=== PATIENT | female | born 1985 | race Caucasian/White ===

== ENCOUNTER 2020-02-04 10:30 | Outpatient (REF) | payer OTHER, SELFPAY | END 2020-02-04 10:31 | disposition home or self-care (01) | LOC: HO.LAB 10:30 | PROVIDERS: Visit Provider Internal Medicine | DX: Z20.828 Contact with and (suspected) exposure to other viral communicable diseases (principal) | CPT/HCPCS: C9803; U0003 ==

== ENCOUNTER 2020-03-27 12:03 | Outpatient (REF) | payer OTHER, SELFPAY | END 2020-03-27 12:04 | disposition home or self-care (01) | LOC: HO.LAB 12:03 | PROVIDERS: Visit Provider Internal Medicine | DX: Z20.822 Contact with and (suspected) exposure to COVID-19 (principal) | CPT/HCPCS: 36415; C9803; U0003; U0005 ==

== ENCOUNTER 2021-12-17 08:49 | Emergency (ER) | payer OTHER, SELFPAY ==
[2021-12-17 09:47] VITALS: BP 115/63; PULSE 109; RESP 16; TEMP 36.6; O2SAT 99; BMI 29.2
--- NOTE | 2021-12-17 11:07 | ED_ITS ---
HPI - Skin/Abscess/Foreign Bdy General Chief complaint: Skin/Abscess/Foreign Body Stated complaint: vaginal pain Time Seen by Provider: 12/17/21 10:09 Source: patient Mode of arrival: ambulatory Limitations: no limitations History of Present Illness HPI narrative: Patient presents emergency department for evaluation of right labial pain and swelling. Reports onset 4 days. States she has had a history of similar in the past greater than 7 years ago but not nearly this severe. Reports that area to become increasing in size and worsening pain. She has had some associated dysuria. She denies fevers, chills, nausea, vomiting, abdominal pain, suprapubic pain, back pain, abnormal vaginal discharge, concerns for sexually transmitted infections. Related Data Previous Rx's Medication Instructions Recorded doxycycline hyclate 100 mg tablet 100 mg PO BID 7 days #14 tabs 12/17/21 oxycodone 5 mg tablet 5 mg PO Q6H PRN pain #10 tabs 12/17/21 Allergies Allergy/AdvReac Type Severity Reaction Status Date / Time No Known Allergies Allergy Verified 12/17/21 09:50 Review of Systems Review of Systems: Constitutional: No weight loss, fever, chills, weakness or fatigue. Skin: No rash or itching. Cardiovascular: No chest pain, chest pressure or chest discomfort. No palpita tions or pedal edema. Respiratory: No shortness of breath, cough or sputum production. Gastrointestinal: No anorexia, nausea, vomiting or diarrhea. No abdominal pain Genitourinary: No burning micturition. No urinary frequency or incontinence. Labial pain and swelling Musculoskeletal: No muscle pain, back pain, joint pain or stiffness. Psychiatric: No depression or anxiety. Yes all other systems are reviewed and are negative [facility] Past Medical History Attestation statement: The following information was validated with the patient. Source: old records reviewed Social History Social History Advance Directives: No Advance Directives Information Provided: Yes Physical Exam Vital Signs: Vital Signs: Last Vital Signs Temp 97.9 F 12/17/21 09:47 Pulse 109 H 12/17/21 09:47 Resp 16 12/17/21 09:47 BP 115/63 12/17/21 09:47 Pulse Ox 99 12/17/21 09:47 O2 Del Method 12/17/21 09:47 BMI result Body Mass Index 29.2 Vital signs have been reviewed as normal and appeared to be correct. Blood pressure normal.? Tachycardia Respiration rate normal. Temperature normal.? Oxygen saturation normal. Appearance: Alert.?Oriented to person, place and time. No acute distress.?Normal affect. Eyes: Pupils equal, round and reactive to light.? ENT: Pharynx normal.?? Neck: Normal inspection.? Neck supple.?? CVS: Heart sounds normal. Normal heart rate and rhythm.? Pulses normal.?? Respiratory: No respiratory distress.? Lung sounds clear to auscultation bilaterally?? Abdomen: Soft and non-tender. Normoactive bowel sounds. Genitourinary: Supervised by ED FARAZ Lozoya. Normal external appearance of urethra.? No lesions/lacerations or discharge or tenderness noted. positive right Bartholin cyst noted.? Skin: Skin warm and dry.? Normal skin color.? Extremities: No lower extremity edema.? Neuro: Moves all extremities spontaneously. Sensation intact bilaterally. No focal neuro deficits. Ambulates with normal steady gait. Course Course Course Narrative: Patient is a 36-year-old female with no significant past medical history presents emergency department for evaluation labial abscess. Upon physical examination is consistent with a Bartholin's cyst, significant right labial swelling, pain, tenderness upon palpation, and labial erythema externally. She is noted to be tachycardic upon arrival to the emergency department, this may be responses secondary to pain, however will obtain CBC, CMP, lactic acid, blood cultures, chlamydia and gonorrhea testing as well as urinalysis. Patient to receive LMX to the area, morphine IV for pain, Zofran IV prophylactically for nausea. Will prepare for incision and drainage of the Bartholin cyst. Reevaluation(s) Reevaluation #1: CBC is Notable for leukocytosis with 8.0. CMP is unremarkable. Lactic acid is normal. Blood cultures pending. Patient is status post incision and drainage of the Bartholin's cyst, performed under aseptic technique, copious amount of purulent drainage removed, Benavides catheter did not remain in place after drainage, tolerated the procedure well. Testing for gonorrhea and chlamydia sent and are pending received prophylactic treatment ceftriaxone while in the emergency department and discharged home with a prescription for doxycycline. Urinalysis reveals no evidence of infection, urine test is negative. Advised outpatient follow-up with Gynecology. Reviewed worrisome signs and symptoms to return back to emergency department for. All questions patient was discharged h ome in stable condition. MDM - Skin/Abscess/Foreign Bdy Medical Records Attestation: I reviewed the patient's medical records. Lab Data Attestation: I reviewed the patient's lab results. Result diagrams: 12/17/21 11:40 12/17/21 11:50 Labs: Lab Results 12/17/21 12/17/21 12/17/21 Range/Units 11:40 11:40 11:50 WBC 18.0 H (4.8-10.8) X10*3/uL RBC 4.26 (4.20-5.50) X10*6/uL Hgb 11.9 L (12.0-16.0) g/dl Hct 35.8 L (37.0-47.0) % MCV 84.0 (80.0-98.0) fL MCH 27.9 (27.0-33.0) pg MCHC 33.2 (31.0-35.0) g/dl RDW 13.0 (11.0-16.0) % Plt Count 417 H (160-400) X10*3/uL MPV 9.5 (9.4-12.3) fL Immature Gran % (Auto) 0.4 (0.0-0.4) % Neut % (Auto) 85.0 H (45-73) % Lymph % (Auto) 9.3 L (20-40) % [place] % (Auto) 4.8 (2-11) % Eos % (Auto) 0.2 (0-4) % Baso % (Auto) 0.3 (0-2) % Lymph # (Auto) 1.7 (1.2-4.9) X10*3/uL [place] # (Auto) 0.9 (0.1-1.2) X10*3/uL Eos # (Auto) 0.0 (0.0-0.4) X10*3/uL Baso # (Auto) 0.1 (0.0-0.2) X10*3/uL Abs Immat Gran (auto) 0.07 H (0.00-0.03) X10*3/uL Absolute Neuts (auto) 15.3 H (2.0-8.3) x10*3/uL Absolute Nucleated RBC 0.000 (0.0-0.012) X10*3/uL Nucleated RBC % (auto) 0.0 (0.0-0.2) /100WBC Sodium 139 (135-145) mmol/L Potassium 3.7 (3.3-5.1) mmol/L Chloride 103 (96-108) mmol/L Carbon Dioxide 24 (22-29) mmol/L Anion Gap 16 (12-20) BUN 7 L (9-16) mg/dL Creatinine 0.65 (0.5-1.4) mg/dL Estim Creat Clear Calc 98.6 Estimated GFR > 60 Random Glucose 87 (60-115) mg/dL Lactic Acid 0.9 (0.5-2.0) mmol/L Calcium 8.9 (8.4-10.2) mg/dL Total Bilirubin 0.4 (0.0-1.0) mg/dL AST 13 (5-31) U/L ALT 9 (0-31) U/L Alkaline Phosphatase 89 (39-117) U/L Total Protein 7.1 (6.5-8.0) g/dL Albumin 4.0 (3.5-5.0) g/dL Urine Color Urine Appearance Urine pH (5.0-9.0) Ur Specific [place] (1.005-1.025) Urine Protein (Neg-Trace) mg/dL Urine Glucose (UA) (Negative) mg/dL Urine Ketones (Negative) mg/dL Urine Blood (Negative) Urine Nitrite (Negative) Ur Leukocyte Esterase (Negative) Urine RBC (0-2) /HPF Urine WBC (0-5) /HPF Ur Squamous Epith Cells (0-2) /HPF Urine Bacteria (None Seen) Hyaline Casts (0-2) /LPF Urine Test (NEGATIVE) 12/17/21 12/17/21 Range/Units 14:08 14:08 WBC (4.8-10.8) X10*3/uL RBC (4.20-5.50) X10*6/uL Hgb (12.0-16.0) g/dl Hct (37.0-47.0) % MCV (80.0-98.0) fL MCH (27.0-33.0) pg MCHC (31.0-35.0) g/dl RDW (11.0-16.0) % Plt Count (160-400) X10*3/uL MPV (9.4-12.3) fL Immature Gran % (Auto) (0.0-0.4) % Neut % (Auto) (45-73) % Lymph % (Auto) (20-40) % [place] % (Auto) (2-11) % Eos % (Auto) (0-4) % Baso % (Auto) (0-2) % Lymph # (Auto) (1.2-4.9) X10*3/uL [place] # (Auto) (0.1-1.2) X10*3/uL Eos # (Auto) (0.0-0.4) X10*3/uL Baso # (Auto) (0.0-0.2) X10*3/uL Abs Immat Gran (auto) (0.00-0.03) X10*3/uL Absolute Neuts (auto) (2.0-8.3) x10*3/uL Absolute Nucleated RBC (0.0-0.012) X10*3/uL Nucleated RBC % (auto) (0.0-0.2) /100WBC Sodium (135-145) mmol/L Potassium (3.3-5.1) mmol/L Chloride (96-108) mmol/L Carbon Dioxide (22-29) mmol/L Anion Gap (12-20) BUN (9-16) mg/dL Creatinine (0.5-1.4) mg/dL Estim Creat Clear Calc Estimated GFR Random Glucose (60-115) mg/dL Lactic Acid (0.5-2.0) mmol/L Calcium (8.4-10.2) mg/dL Total Bilirubin (0.0-1.0) mg/dL AST (5-31) U/L ALT (0-31) U/L Alkaline Phosphatase (39-117) U/L Total Protein (6.5-8.0) g/dL Albumin (3.5-5.0) g/dL Urine Color Dark Yellow Urine Appearance Clear Urine pH 6.5 (5.0-9.0) Ur Specific [place] 1.020 (1.005-1.025) Urine Protein Trace (Neg-Trace) mg/dL Urine Glucose (UA) Negative (Negative) mg/dL Urine Ketones 15 (Negative) mg/dL Urine Blood Small (1+) H (Negative) Urine Nitrite Negative (Negative) Ur Leukocyte Esterase Small (1+) H (Negative) Urine RBC 3-5 H (0-2) /HPF Urine WBC 0-5 (0-5) /HPF Ur Squamous Epith Cells 0-2 (0-2) /HPF Urine Bacteria 1+ (None Seen) Hyaline Casts 0-2 (0-2) /LPF Urine Test NEGATIVE (NEGATIVE) Procedures Abscess I/D Site: bartholin's gland Side (if applicable): right Local Anesthetic: lidocaine 2% Amount of anesthesia used (mL): 6 Technique: incised with blade Irrigation: Yes Packing used?: none Discharge Plan Discharge Clinical Impression: Bartholin cyst Patient Disposition: Home, Self-Care Instructions: Bartholin Cyst (ED) Additional Instructions: As discussed, the area may continue to drain blood/pus over the next couple of days. Please contact [employer]IE[employer] TECHNICIAN Dr. Santana, to arrange for a follow-up visit. You can take ibuprofen 200 mg, 3 tablets (600mg) every 6-8 hours as needed for pain, in addition to Tylenol 500 mg, 2 tablets (1,000mg) every 4-6 hours as needed for pain, but not to exceed 3 doses daily (3,000mg).? You have also been given a prescription for oxycodone to use for severe pain not relieved with ibuprofen/Tylenol. This is a narcotic medication, it may be addicting, it can make you drowsy. You should not drive, go to work, operate machinery, or drink alcohol while taking this medication. You have been given an antibiotic, doxycycline, please take this twice daily for 7 days. Return to the emergency department any new or worsening symptoms or concerns including but not limited to increasing redness, swelling, pain, fevers, chills. [place] se mencion?, el ?eddi puede continuar drenando barrie/pus alejandra los pr?ximos d?as. Comun?quese con el gine?logo Dr. Santana para programar roberto carlos visita de seguimiento. Puede cathryn ibuprofeno de 200 mg, 3 tabletas (600 mg) cada 6 a 8 horas seg?n sea necesario para el dolor, adem?s de Tylenol 500 mg, 2 tabletas (1000 mg) cada 4 a 6 horas seg?n sea necesario para el dolor, layo sin exceder las 3 dosis diarias (3.000 mg). Tambi?n se le smart recetado oxicodona para el dolor intenso que no se dontrell con ibuprofeno/Tylenol. Fe es un medicamento narc?jose ramon, puede ser adictivo, puede causarle somnolencia. No debe conducir, ir a trabajar, operar maquinaria o beber alcohol mientras rhonda fe medicamento. Le monet dado un antibi?jose ramon, doxiciclina, t?arango dos veces al d?a alejandra 7 d?as. Devuelva al departamento de emergencias cualquier s?ntoma nuevo o que empeore o inquietudes que incluyen, entre otros, aumento del enrojecimiento, hinchaz?n, dolor, fiebre, escalofr?os. Prescriptions: New oxycodone 5 mg tablet 5 mg PO Q6H PRN (Reason: pain) Qty: 10 0RF Rx Instructions: Partial Fill upon patient request. doxycycline hyclate 100 mg tablet 100 mg PO BID 7 Days Qty: 14 0RF Stand Alone Forms: Work/School Release Interventions: ED Discharge Assessment Last Done: 12/17/21 14:43 Print Language: Thai
[2021-12-17] MEDS: Lidocaine 4 % Cream KIT 1 APPL TOPICAL (11:42)
[2021-12-17] MEDS: Lidocaine HCl 2 % MPF 5 ML VIAL SUBCUT (11:42)
[2021-12-17] MEDS: Morphine Sulfate 4 MG/ML CARTRIDGE IVPUSH ×2 (11:42→12:55)
[2021-12-17] MEDS: ondansetron HCL 4 MG/2 ML VIAL IVPUSH (11:42)
[2021-12-17 11:55] LABS: MANUAL DIFF FLAG NO
[2021-12-17 11:56] LABS: Basophils Absolute Auto 0.1 X10*3/uL (0.0-0.2); Basophils Percent Auto 0.3 % (0-2); Eosinophils Percent Auto 0.2 % (0-4); Hematocrit 35.8 % (37.0-47.0); Hemoglobin 11.9 g/dl (12.0-16.0); Imm Gran Abs Auto 0.07 X10*3/uL (0.00-0.03); Imm Gran Pct Auto 0.4 % (0.0-0.4); Lymphocytes Absolute Auto 1.7 X10*3/uL (1.2-4.9); Lymphocytes Percent Auto 9.3 % (20-40); Mean Corpuscular HGB Conc 33.2 g/dl (31.0-35.0); Mean Corpuscular Hemoglobin 27.9 pg (27.0-33.0); Mean Platelet Volume 9.5 fL (9.4-12.3); Monocytes Absolute Auto 0.9 X10*3/uL (0.1-1.2); Monocytes Percent Auto 4.8 % (2-11); Neutrophils Absolute Auto 15.3 x10*3/uL (2.0-8.3); Platelet Count 417 X10*3/uL (160-400); Red Blood Count 4.26 X10*6/uL (4.20-5.50)
[2021-12-17 12:08] LABS: Lactic Acid 0.9 mmol/L (0.5-2.0)
[2021-12-17 12:14] LABS: Alanine Aminotransferase 9 U/L (0-31); Alkaline Phosphatase 89 U/L (39-117); Anion Gap 16 (12-20); Aspartate Amino Transferase 13 U/L (5-31); Bilirubin Total 0.4 mg/dL (0.0-1.0); Blood Urea Nitrogen 7 mg/dL (9-16); Calcium 8.9 mg/dL (8.4-10.2); Carbon Dioxide 24 mmol/L (22-29); Chloride 103 mmol/L (96-108); Creatinine Clr Calc Pharmacy 98.6; Estimated Glomerular Filt Rate > 60; Glucose Random 87 mg/dL (60-115); Potassium 3.7 mmol/L (3.3-5.1); Sodium 139 mmol/L (135-145); Total Protein 7.1 g/dL (6.5-8.0)
[2021-12-17] MEDS: cefTRIAXone sodium 500 MG, Lidocaine HCl 1 % MPF 1 ML IM (14:08)
[2021-12-17 14:18] LABS: Appearance Urine Clear; Color Urine Dark Yellow; Glucose Urine UA Negative (Negative); Leukocyte Esterase Urine Small (1+) (Negative); Nitrite Urine Negative (Negative); PH 6.5 (5.0-9.0); UMIC TRIGGER UACC YES; Urine Blood Small (1+) (Negative); Urine Ketones 15 mg/dL (Negative); Urine Protein Trace mg/dL (Neg-Trace)
[2021-12-17 14:19] LABS: UPreg QC Valid YES; Urine Pregnancy NEGATIVE (NEGATIVE)
[2021-12-17 14:30] LABS: Bacteria Urine 1+ (None Seen); Hyaline Casts Urine 0-2 /LPF (0-2); Squamous Epithelial Cell Urine 0-2 /HPF (0-2); UACC Culture Trigger YES; WBC Urine 0-5 /HPF (0-5)
[2021-12-17 16:30] LABS: CT PCR NOT DETECTED (Not Detect.); NG PCR NOT DETECTED (Not Detect.)
== END 2021-12-17 14:52 | disposition home or self-care (01) ==
PROVIDERS: Nurse Practitioner Family; Emergency Provider Emergency Medicine
DX: N75.1 Abscess of Bartholin's gland (principal); R10.2 Pelvic and perineal pain
CPT/HCPCS: 36415; 56420; 80053; 81001; 81025; 83605; 85025; 87040; 87086; 87147; 87205; 87491; 87591; 96372; 96374; 96375; 96376; 99282; 99284; J0696; J2270; J2405

== ENCOUNTER 2021-12-18 15:38 | Emergency (ER) | payer OTHER, SELFPAY | END 2021-12-18 18:32 | disposition left against medical advice (07) | LOC: HO.ED 18:31 | PROVIDERS: Emergency Provider Emergency Medicine | DX: Z04.9 Encounter for examination and observation for unspecified reason (principal) ==

== ENCOUNTER 2021-12-19 02:21 | Emergency (ER) | payer OTHER, SELFPAY ==
[2021-12-19 02:47] VITALS: BP 112/46; PULSE 77; RESP 18; TEMP 36.8; O2SAT 100; BMI 29.5
[2021-12-19 03:09] LABS: Appearance Urine Cloudy; Basophils Absolute Auto 0.1 X10*3/uL (0.0-0.2); Basophils Percent Auto 0.6 % (0-2); Color Urine Dark Yellow; Eosinophils Absolute Auto 0.4 X10*3/uL (0.0-0.4); Glucose Urine UA Negative (Negative); Hematocrit 36.5 % (37.0-47.0); Hemoglobin 11.9 g/dl (12.0-16.0); Imm Gran Abs Auto 0.04 X10*3/uL (0.00-0.03); Imm Gran Pct Auto 0.4 % (0.0-0.4); Leukocyte Esterase Urine Trace (Negative); Lymphocytes Percent Auto 32.4 % (20-40); MANUAL DIFF FLAG NO; Mean Corpuscular HGB Conc 32.6 g/dl (31.0-35.0); Mean Corpuscular Hemoglobin 27.4 pg (27.0-33.0); Mean Corpuscular Volume 84.1 fL (80.0-98.0); Mean Platelet Volume 8.9 fL (9.4-12.3); Monocytes Absolute Auto 0.6 X10*3/uL (0.1-1.2); Monocytes Percent Auto 6.9 % (2-11); Neutrophils Absolute Auto 5.2 x10*3/uL (2.0-8.3); Neutrophils Percent Auto 55.7 % (45-73); Nitrite Urine Negative (Negative); Platelet Count 456 X10*3/uL (160-400); Red Blood Count 4.34 X10*6/uL (4.20-5.50); Red Cell Distribution Width 12.6 % (11.0-16.0); Specific Gravity - Urine 1.025 (1.005-1.025); UMIC TRIGGER UACC YES; Urine Blood Small (1+) (Negative); Urine Ketones Trace mg/dL (Negative); Urine Protein Trace mg/dL (Neg-Trace); White Blood Count 9.3 X10*3/uL (4.8-10.8)
[2021-12-19 03:19] LABS: Bacteria Urine 4+ (None Seen); Hyaline Casts Urine 0-2 /LPF (0-2); Squamous Epithelial Cell Urine >20 /HPF (0-2); WBC Urine 0-5 /HPF (0-5)
[2021-12-19 03:26] LABS: Alanine Aminotransferase 11 U/L (0-31); Albumin Level 3.9 g/dL (3.5-5.0); Alkaline Phosphatase 88 U/L (39-117); Anion Gap 14 (12-20); Aspartate Amino Transferase 13 U/L (5-31); Bilirubin Total < 0.2 mg/dL (0.0-1.0); Blood Urea Nitrogen 10 mg/dL (9-16); Calcium 8.9 mg/dL (8.4-10.2); Carbon Dioxide 25 mmol/L (22-29); Chloride 103 mmol/L (96-108); Creatinine Clr Calc Pharmacy 97.5; Estimated Glomerular Filt Rate > 60; Glucose Random 103 mg/dL (60-115); Potassium 3.4 mmol/L (3.3-5.1); Sodium 139 mmol/L (135-145); Total Protein 7.1 g/dL (6.5-8.0)
--- NOTE | 2021-12-19 03:35 | ED.RECABL ---
HPI - Recheck/Abnormal Lab/Rx General Chief Complaint: Recheck/Abnormal Lab/Rx Stated Complaint: ?Abnormal lab Time Seen by Provider: 12/19/21 03:34 Source: patient Mode of arrival: ambulatory Limitations: no limitations History of Present Illness HPI narrative: Patient was seen here yesterday for muscle insists status post I&D started on doxycycline blood cultures were done showed 1/2 showing Gram-positive cocci preliminary report patient denies any fever chills feels good otherwise, labs done prior to examination showed normal WBC count of 9.3 Related Data Previous Rx's Medication Instructions Recorded doxycycline hyclate 100 mg tablet 100 mg PO BID 7 days #14 tabs 12/17/21 oxycodone 5 mg tablet 5 mg PO Q6H PRN pain #10 tabs 12/17/21 Allergies Allergy/AdvReac Type Severity Reaction Status Date / Time No Known Allergies Allergy Verified 12/17/21 09:50 Review of Systems Review of Systems: Yes all other systems are reviewed and are negative PMFSH Social History Social History Advance Directives: No Advance Directives Information Provided: No Physical Exam Vital Signs: Vital Signs: Last Vital Signs Temp 98.3 F 12/19/21 02:47 Pulse 77 12/19/21 02:47 Resp 18 12/19/21 02:47 BP 112/46 L 12/19/21 02:47 Pulse Ox 100 12/19/21 02:47 O2 Del Method 12/19/21 02:47 BMI result Body Mass Index 29.5 Appearance: Alert. Oriented X3. No acute distress. Eyes: PERRLA, No Nystagmus ENT: Pharynx normal. Oral Mucosa moist Neck: Normal inspection. Neck supple. CVS: Normal heart rate and rhythm. Pulses normal. Respiratory: No respiratory distress. Equal air entry bilateral, no wheezing/rales/rhonchi Abdomen: Soft and nontender. Bowel sounds are present, no mass palpable, no CVA tenderness Skin: Skin warm and dry. Normal skin color. Normal skin turgor. Extremities: No lower extremity edema. No calf tenderness Neuro: Oriented X 3. MDM - Recheck/Abnormal Lab/Rx MDM Narrative Medical decision making narrative: Patient with positive Gram-positive cocci in blood 1 of 2 blood culture nontoxic look afebrile white counts normal on doxycycline for Bartholin's cyst will continue same advised to follow up report to the ER if high fever blood culture positive likely from contamination from the skin Lab Data Attestation: I reviewed the patient's lab results. Result diagrams: 12/19/21 02:57 12/19/21 02:57 Labs: Lab Results 12/19/21 12/19/21 12/19/21 Range/Units 02:57 02:57 02:57 WBC 9.3 (4.8-10.8) X10*3/uL RBC 4.34 (4.20-5.50) X10*6/uL Hgb 11.9 L (12.0-16.0) g/dl Hct 36.5 L (37.0-47.0) % MCV 84.1 (80.0-98.0) fL MCH 27.4 (27.0-33.0) pg MCHC 32.6 (31.0-35.0) g/dl RDW 12.6 (11.0-16.0) % Plt Count 456 H (160-400) X10*3/uL MPV 8.9 L (9.4-12.3) fL Immature Gran % (Auto) 0.4 (0.0-0.4) % Neut % (Auto) 55.7 (45-73) % Lymph % (Auto) 32.4 (20-40) % [place] % (Auto) 6.9 (2-11) % Eos % (Auto) 4.0 (0-4) % Baso % (Auto) 0.6 (0-2) % Lymph # (Auto) 3.0 (1.2-4.9) X10*3/uL [place] # (Auto) 0.6 (0.1-1.2) X10*3/uL Eos # (Auto) 0.4 (0.0-0.4) X10*3/uL Baso # (Auto) 0.1 (0.0-0.2) X10*3/uL Abs Immat Gran (auto) 0.04 H (0.00-0.03) X10*3/uL Absolute Neuts (auto) 5.2 (2.0-8.3) x10*3/uL Absolute Nucleated RBC 0.000 (0.0-0.012) X10*3/uL Nucleated RBC % (auto) 0.0 (0.0-0.2) /100WBC Sodium 139 (135-145) mmol/L Potassium 3.4 (3.3-5.1) mmol/L Chloride 103 (96-108) mmol/L Carbon Dioxide 25 (22-29) mmol/L Anion Gap 14 (12-20) BUN 10 (9-16) mg/dL Creatinine 0.66 (0.5-1.4) mg/dL Estim Creat Clear Calc 97.5 Estimated GFR > 60 Random Glucose 103 (60-115) mg/dL Calcium 8.9 (8.4-10.2) mg/dL Total Bilirubin < 0.2 (0.0-1.0) mg/dL AST 13 (5-31) U/L ALT 11 (0-31) U/L Alkaline Phosphatase 88 (39-117) U/L C-Reactive Protein 4.50 H (< or = 0.50) mg/dL Total Protein 7.1 (6.5-8.0) g/dL Albumin 3.9 (3.5-5.0) g/dL Urine Color Dark Yellow Urine Appearance Cloudy Urine pH 6.0 (5.0-9.0) Ur Specific [place] 1.025 (1.005-1.025) Urine Protein Trace (Neg-Trace) mg/dL Urine Glucose (UA) Negative (Negative) mg/dL Urine Ketones Trace (Negative) mg/dL Urine Blood Small (1+) H (Negative) Urine Nitrite Negative (Negative) Ur Leukocyte Esterase Trace H (Negative) Urine RBC 11-20 H (0-2) /HPF Urine WBC 0-5 (0-5) /HPF Ur Squamous Epith Cells >20 (0-2) /HPF Urine Bacteria 4+ (None Seen) Hyaline Casts 0-2 (0-2) /LPF Discharge Plan Discharge Clinical Impression: Normal exam Patient Disposition: Home, Self-Care Instructions: Normal Exam (ED) Additional Instructions: Continue antibiotics as prescribed Your blood culture report is likely from contamination from the skin Report to ER if high-grade fever /not feeling well Prescriptions: No Action oxycodone 5 mg tablet 5 mg PO Q6H PRN (Reason: pain) Qty: 10 0RF Rx Instructions: Partial Fill upon patient request. doxycycline hyclate 100 mg tablet 100 mg PO BID 7 Days Qty: 14 0RF Stand Alone Forms: Work/School Release Interventions: ED Discharge Assessment Last Done: 12/19/21 03:59 Discharge Date/Time: 12/19/21 04:00
== END 2021-12-19 04:00 | disposition home or self-care (01) ==
PROVIDERS: Emergency Provider Internal Medicine
DX: R79.89 Other specified abnormal findings of blood chemistry (principal); Z79.899 Other long term (current) drug therapy
CPT/HCPCS: 36415; 80053; 81001; 85025; 86140; 99282; 99283